=== PATIENT | male | born 1940 | race Caucasian/White ===

== ENCOUNTER 2018-07-30 22:00 | Emergency (ER) | payer MEDICARE, OTHER ==
[~2018-07-30] VITALS: Ht 182.9 cm; Wt 102.5 kg
--- OUTSIDE RECORDS SUMMARY | ~2018-07-30 | XMS | Clinical Summary ---
Demographics + + + | Address | [address] | | | [place] [address] | + + + | Home Phone | | + + + | Preferred Language | Unknown | + + + | Marital Status | | + + + | Rastafarian Affiliation | Unknown | + + + | Race | Unknown | + + + | Ethnic Group | Unknown | + + + Author + + + | Author | [employer] | + + + | Organization | [facility] | + + + | Address | Unknown | + + + | Phone | Unavailable | + + + Support + + + + + | Name | Relationship | Address | Phone | + + + + + | Génesis Meyer | ECON | [address] | | | | | [place] | | | | | [address] | | + + + + + Care Team Providers + +------+ + | Care Furniture Painter Name | Role | Phone | + +------+ + | Renato Macias MD | PP | | + +------+ + Allergies Not on File Current Medications Not on file Active Problems Not on file Social History + +-------+ +--------+------+ | Tobacco Use | Types | Packs/Day | Years | Date | | | | | Used | | + +-------+ +--------+------+ | Never Assessed | | | | | + +-------+ +--------+------+ + + + | Sex Assigned at | Date Recorded | | | | + + + | Not on file | | + + + Last Filed Vital Signs + + + + | Vital Sign | Reading | Time Taken | + + + + | Blood Pressure | 126/71 | 04/29/2015 11:15 AM PST | + + + + | Pulse | 66 | 04/29/2015 11:15 AM PST | + + + + | Temperature | - | - | + + + + | Respiratory Rate | - | - | + + + + | Oxygen Saturation | - | - | + + + + | Inhaled Oxygen | - | - | | Concentration | | | + + + + | Weight | 105.7 kg (233 lb) | 04/29/2015 11:15 AM PST | + + + + | Height | 182.9 cm (6') | 04/29/2015 11:15 AM PST | + + + + | Body Mass Index | 31.6 | 04/29/2015 11:15 AM PST | + + + + Plan of Treatment Not on file Results Not on filefrom Last 3 Months Insurance + +--------+ +------+-------+ + | Payer | Benefi | Subscriber | Type | Phone | Address | | | t Plan | ID | | | | | | / | | | | | | | Group | | | | | + +--------+ +------+-------+ + | MEDICARE | MEDICA | [id number] | | | [address] | | | RE | | | | [place] [id number] | | | IP-OP | | | | | + +--------+ +------+-------+ + + +--------+ +--------+ + + | Guarantor Name | Accoun | Relation to | Date | Phone | Billing Address | | | t Type | Patient | of | | | | | | | | | | + +--------+ +--------+ + + | ANA MEYER | Person | Self [birth year] | Home: | [address] | | | al/Fam | | 1941 | [phone] | [place] [address] | | | heidi | | | [phone] | | + +--------+ +--------+ + +"
--- OUTSIDE RECORDS SUMMARY | ~2018-07-30 | XMS | Clinical Summary ---
Demographics + + + | Address | [address] | | | [place] [address] | + + + | Home Phone | | + + + | Preferred Language | Unknown | + + + | Marital Status | | + + + | Cheondoism Affiliation | Unknown | + + + | Race | Unknown | + + + | Ethnic Group | Unknown | + + + Author + + + | Author | [employer] [employer] | + + + | Organization | [facility] | + + + | Address | Unknown | + + + | Phone | Unavailable | + + + Support + + + + + | Name | Relationship | Address | Phone | + + + + + | Génesis Meyer | ECON | [address] | | | | | [place] | | | | | [address] | | + + + + + Care Team Providers + +------+ + | Care Malt Loader Name | Role | Phone | + [...] +------+-------+ + | MEDICARE | MEDICA | [id number] | | | [address] | | | RE | | | | [place] [id number] | | | IP-OP | | | [...] | 1941 | [phone] | [place] [address] | | | he[place] | | | [phone] | | + +--------+ +--------+ + +"
[~2018-07-30 22:00] MED LIST: ACIPHEX20 MG PO; ALDACTONE25 MG PO; ASA-BUTALB-CAF1 EACH PO; ASPIR-LOW81 MG PO; BISOPROLOL FUMA10 MG PO; BISOPROLOL FUMAR5 MG PO; COUMADIN5 MG PO; DIGOXIN125 MCG PO; FISH OIL CONCE1 EAC1 PO; KEFLEX500 MG PO; LASIX40 MG PO; LIDODERM700 MG TOP; MAG DELAY64 MG PO; NORCO 5-325 TA1 EACH PO; OMEPRAZOLE20 MG PO; PRAVACHOL40 MG PO; PYRIDIUM100 MG PO; SERTRALINE HCL50 MG PO; TAMSULOSIN HCL0.4 MG PO; TYLENOL325 MG PO; VALIUM5 MG PO
[2018-07-30] MEDS ORDERED: GABAPENTIN300 MG PO (22:08)
[2018-07-30] MEDS ORDERED: SPIRONOLACTONE25 MG PO (22:08)
--- NOTE | 2018-07-31 14:24 | EKG ---
[facility] [address] [facility] [place] [address] Signed Atrial fibrillation with rapid ventricular response Left axis deviation Left bundle branch block Abnormal ECG No previous ECGs available Confirmed by JOSEPH RIOS MD ([id number]) on 07/31/2018 2:24:49 PM Electronically Signed By: JOSEPH RIOS MD 07/31/18 1424 PATIENT NAME: ANA GATES Electrocardiogram DATE OF : 36 PHYSICIAN: JOSEPH RIOS MD REPORT #: [id number] REPORT IS CONFIDENTIAL AND NOT TO BE RELEASED WITHOUT AUTHORIZATION
== END 2018-07-31 02:19 | disposition home or self-care (01) ==
LOC: ED 22:00
DX: R07.89 Other chest pain (principal); I10 Essential (primary) hypertension; I25.2 Old myocardial infarction; I48.91 Unspecified atrial fibrillation; Z87.891 Personal history of nicotine dependence; Z95.5 Presence of coronary angioplasty implant and graft; Z79.01 Long term (current) use of anticoagulants; Z79.82 Long term (current) use of aspirin; Z79.899 Other long term (current) drug therapy
CPT/HCPCS: 71045; 80053; 80162; 83735; 84484; 85025; 85610; 93005; 93010; 99285-25

== ENCOUNTER 2019-03-28 22:15 | Emergency (ER) | payer MEDICARE, OTHER ==
[~2019-03-28] VITALS: Ht 182.9 cm; Wt 105.2 kg
[~2019-03-28 22:15] MED LIST changes: +GABAPENTIN300 MG PO; +SPIRONOLACTONE25 MG PO
[2019-03-28] MEDS ORDERED: CLOPIDOGREL75 MG PO (22:27)
[2019-03-28] MEDS ORDERED: WARFARIN SODIUM5 MG PO (22:27)
[2019-03-28] MEDS ORDERED: DIGITEK125 MCG PO (22:28)
[2019-03-28] MEDS ORDERED: FUROSEMIDE40 MG PO (22:28)
[2019-03-28] MEDS ORDERED: PRAVASTATIN SOD40 MG PO (22:28)
[2019-03-28] MEDS ORDERED: LOSARTAN POTASS25 MG PO (22:30)
== END 2019-03-29 00:18 | disposition home or self-care (01) ==
LOC: ED 22:15
DX: R04.0 Epistaxis (principal); R79.1 Abnormal coagulation profile; I10 Essential (primary) hypertension; I25.2 Old myocardial infarction; I48.91 Unspecified atrial fibrillation; Z87.891 Personal history of nicotine dependence; Z79.899 Other long term (current) drug therapy; Z79.01 Long term (current) use of anticoagulants
CPT/HCPCS: 30901; 36415; 80053; 85025; 85610; 85730; 99283-25

== ENCOUNTER 2020-09-30 14:50 | Emergency (ER) | payer MEDICARE, OTHER ==
[~2020-09-30] VITALS: Ht 182.9 cm; Wt 105.7 kg
[~2020-09-30 14:50] MED LIST changes: +CLOPIDOGREL75 MG PO; +DIGITEK125 MCG PO; +FUROSEMIDE40 MG PO; +LOSARTAN POTASS25 MG PO; +PRAVASTATIN SOD40 MG PO; +WARFARIN SODIUM5 MG PO
[2020-09-30] MEDS ORDERED: ACIPHEX20 MG PO (17:03)
[2020-09-30] MEDS ORDERED: LISINOPRIL10 MG PO (17:04)
[2020-09-30] MEDS ORDERED: METOPROLOL SUCC25 MG PO (17:05)
[2020-09-30] MEDS ORDERED: CEPHALEXIN500 M1 PO (18:14)
== END 2020-09-30 19:43 | disposition home or self-care (01) ==
LOC: ED 14:50
DX: L03.115 Cellulitis of right lower limb (principal); I10 Essential (primary) hypertension; I25.2 Old myocardial infarction; I48.91 Unspecified atrial fibrillation; Z87.891 Personal history of nicotine dependence; Z79.899 Other long term (current) drug therapy; Z79.01 Long term (current) use of anticoagulants
CPT/HCPCS: 73560; 80053; 85025; 85610; 96374; 99283-25; J0696

== ENCOUNTER 2021-02-02 16:34 | Emergency (ER) | payer MEDICARE, OTHER ==
[~2021-02-02] VITALS: Ht 182.9 cm; Wt 103.8 kg
[~2021-02-02 16:34] MED LIST changes: +CEPHALEXIN500 M1 PO; +LISINOPRIL10 MG PO; +METOPROLOL SUCC25 MG PO
--- OUTSIDE RECORDS SUMMARY | 2021-02-02 16:36 | XMS ---
PreManage Notification: ANA GATES Security Materials Inspector Events No recent Security Events currently on file CRITERIA MET - [facility] There are no care providers on record at this time. Anna has no Care Guidelines for this patient. Ree VISIT COUNT (12 MO.) 2 LIN Huerta TOTAL 2 NOTE: Visits indicate total known visits. ED/UCC VISIT TRACKING (12 MO.) 02/02/2021 16:35 [facility] [place] TYPE: Emergency COMPLAINT: - LOWER LT LEG PAIN 09/30/2020 14:51 [facility] [place] TYPE: Emergency COMPLAINT: - R FOOT SWOLLEN/PAIN/ NON INJURY DIAGNOSES: - Old myocardial infarction - Cellulitis of right lower limb - Other longterm (current) drug therapy - intermediate (current) use of anticoagulants - Personal history of nicotine dependence - Unspecified atrial fibrillation - Essential (primary) hypertension INPATIENT VISIT TRACKING (12 MO.) 07/09/2020 03:57 [facility] TYPE: Medical Surgical DIAGNOSES: - Sick sinus syndrome - Atrioventricular block, complete [email or web address]
[2021-02-02] MEDS ORDERED: PREDNISONE20 MG PO (18:06)
== END 2021-02-02 18:20 | disposition home or self-care (01) ==
LOC: ED 16:34
DX: M10.9 Gout, unspecified (principal); I10 Essential (primary) hypertension; I25.2 Old myocardial infarction; I48.91 Unspecified atrial fibrillation; Z87.891 Personal history of nicotine dependence; Z79.899 Other long term (current) drug therapy; Z79.01 Long term (current) use of anticoagulants
CPT/HCPCS: 73630; 99283-25; J7512

== ENCOUNTER 2021-06-30 07:05 | Day surgery (SDC) | payer MEDICARE, OTHER ==
[~2021-06-30] VITALS: Ht 182.9 cm; Wt 110.5 kg
[~2021-06-30 07:05] MED LIST changes: +ALLOPURINOL100 MG PO; +OSTERA TABLET1 EACH PO; +PREDNISONE20 MG PO; +PRILOSEC OTC20 MG PO
[2021-06-30] MEDS ORDERED: VITAMIN C100 MG PO (07:28)
--- NOTE | 2021-06-30 09:54 | NUR ---
PT ALERT, ORIENTED AND SUPPORTED BY 2 DAUGHTERS. PT ANXIOUS TO GET SURGERY OVER. PT REQUESTED PRAYER, FAMILY WILL REMAIN DURING SURGERY. ENCOURAGEMENT GIVEN. WILL FOLLOW NEEDED
--- NOTE | 2021-06-30 12:12 | NUR ---
06/30/21 1212 Isamar Faith 1119 PT ARRIVED IN PACU NON RESPONSIVE TO NOXIOUS STIMULI. 1125 PT REACTIVE. 1145 C/O URGE TO VOID. REMINDED PT CATHETER IS IN PLACE. 1155 TAKING SIPS OF WATER. DENTURES RETURNED. 1205 TO DS. REPORT GIVENT TO RN. CALL LIGHT IN PLACE.
--- NOTE | 2021-06-30 12:47 | NUR ---
1205: PT RETURNS TO UNIT VIA STRETCHER FROM PACU. AWAKE AND ALERT ON ARRIVAL. VSS, RESP EVEN AND UNLABORED. DENIES PAIN AND NAUSEA. CBI CONTS TO RUN SLOWLY, DRAINAGE IN GIRALDO CLEAR LIGHT PINK. NO DRAINAGE NOTED AT URETHRA. ICE WATER AND JELLO PROVIDED. DAUGHTER UPDATED. POC DISCUSSED AND PT AGREEABLE AT THIS TIME. NO NEEDS VOICED AT THIS TIME. CALL LIGHT WITHIN REACH
--- NOTE | 2021-06-30 13:10 | NUR ---
1305: PT AWAKE AND ALERT IN STRETCHER WHEN THIS RN ENTERS THE ROOM. VSS, RESP EVEN AND UNLABORED. GEOVANY PO INTAKE WELL. REG LUNCH TRAY ORDERED REQUESTED. OUTPUT REMAINS CLEAR AND PINK. CBI TURNED OFF. WILL CONT TO MONITOR. PT COMFORTABLE WITHOUT NEEDS. CALL LIGHT WITHIN REACH
--- NOTE | 2021-06-30 13:52 | NUR ---
1340: PT COMPLETES REG LUNCH. GEOVANY WELL. GIRALDO CATH CONTS TO DRAIN CLEAR LIGHT PINK URINE WITH CBI TURNED OFF. PT COMFORTABLE WITHOUT NEEDS. CALL LIGHT WITHIN REACH
--- NOTE | 2021-06-30 14:50 | NUR ---
1410: PT WAKES WHEN THIS RN ENTERS THE ROOM. VSS, RESP EVEN AND UNLABORED ON RA. CONTS TO DENY PAIN AND NAUSEA. 350ML PINK TINGED FLUID DRAINED FROM GIRALDO CATH. CBI REMAINS TURNED OFF. LIGHT PINK, CLEAR FLUID FREE OF CLOTS NOTED IN THE TUBING. REG LUNCH TRAY CLEARED. PT COMFORTABLE WITHOUT NEEDS. CALL LIGHT WITHIN REACH 1440: GIRALDO CATH CONTS TO DRAIN LIGHT PINK, CLEAR FLUIT FREE OF CLOTS. NO NEEDS VOICED, CALL LIGHT WITHIN REACH
--- NOTE | 2021-06-30 15:30 | NUR ---
1510: PT CONTS TO BE AWAKE AND ORIENTED IN ROOM. NO CHANGES TO DRAINAGE FROM GIRALDO. DISCUSSED WITH PT. VSS, RESP EVEN AND UNLABORED. IV CONVERTED TO SL. NO NEEDS VOICED, CALL LIGHT WITHIN REACH.
--- NOTE | 2021-06-30 15:54 | NUR ---
1550: TC PLACED TO PT'S DAUGHTER. NOTIFIED PT MEETS CRITERIA FOR DC. TO HEAD TOWARDS HOSPITAL. CBI DISCONNECTED AND LUMEN CAPPED. SL REMOVED WITH CATH TIP INTACT AND PRESSURE APPLIED TO SITE, WNL. DRESSED WITH THIS RN'S ASSISTANCE. REPOSITIONED IN STRETCHER. COMFORTABLE WITHOUT NEEDS, CALL LIGHT WITHIN REACH.
--- NOTE | 2021-06-30 16:23 | NUR ---
1555: DAUGHTER ARRIVES AT THE BEDSIDE. DC INSTRUCTIONS PROVIDED AND DISCUSSED. PT VOICES UNDERSTANDING AND DENIES QUESTIONS AND CONCERNS AT THIS TIME. GIRALDO CARE DISCUSSED AND TEACHBACK PERFORMED 1605: WHEELED OFF OF UNIT IN WC BY THIS RN. TRANSFERS INTO VEHICLE WITH CANE INDEPENDENTLY AND APPROPRIATELY. NO PHYSICAL SIGNS AND SYMPTOMS OF DISTRESS AT THIS TIME
--- NOTE | 2021-07-02 12:24 | OR ---
[facility] [address] [place] [address] Signed DATE OF OPERATION: 06/30/2021 SURGEON: Gladis Geiger MD PREOPERATIVE DIAGNOSES: 1. A 1.5-2 cm papillary bladder mass, located just superior to the left ureteral orifice. 2. Benign prostatic hyperplasia without active obstructive symptoms. 3. Urinary urgency with urge incontinence. POSTOPERATIVE DIAGNOSES: 1. A 1.5-2 cm papillary bladder mass, located just superior to the left ureteral orifice. 2. Benign prostatic hyperplasia without active obstructive symptoms. 3. Urinary urgency with urge incontinence. PROCEDURES: 1. Urethral dilation using Alphonso sounds from 18-Nicaraguan to 28-Nicaraguan. 2. Transurethral resection of bladder tumor - medium. 3. Transurethral resection of the prostate. ANESTHESIA: General. ESTIMATED BLOOD LOSS: 25 mL. COMPLICATIONS: None. SPECIMENS: 1. A 2 cm papillary bladder mass sent to pathology for evaluation. 2. Prostate chips, also sent to pathology for evaluation. DRAINS: A 22-Nicaraguan three-way Chang catheter, connected to moderate flow continuous bladder irrigation. INDICATIONS FOR PROCEDURE: Mr. Meyer is a very pleasant 80-year-old gentleman, who initially presented to me with complaints of urinary urgency and frequency. He was also noted to have microscopic hematuria on his initial workup. At the time of his cystoscopy, he was found to have a Electronically Signed By: GLADIS GEIGER MD 07/02/21 1224 PATIENT NAME: ANA MEYER OPERATIVE REPORT DATE OF : 36 REPORT #: [id number] PHYSICIAN: GLADIS GEIGER MD PCP: JAZZY DUNN MD REPORT IS CONFIDENTIAL AND NOT TO BE RELEASED WITHOUT AUTHORIZATION [facility] [address] [place], [place] [address] Signed 1.5-2 cm papillary bladder mass located just superior to his left ureteral orifice. There were multiple satellite lesions associated with the mass also present. Grade 3-4 bladder wall trabeculation was also noted, which indicated evidence of long-standing bladder outlet obstruction. The patient was not noted to have any significant median lobe; however, he did have an elevated bladder neck. After informing the patient and his family of the presence of a bladder mass as well as evidence of long-standing lateral bladder outlet obstruction, the patient and his family elected to undergo transurethral resection of bladder tumor, medium, along with transurethral resection of the prostate. He presents today to undergo the aforementioned procedures. FINDINGS: 1. Digital rectal examination was performed, which revealed a 45 g prostate is soft, smooth, and symmetric with no focal nodules. 2. Diagnostic cystoscopy again revealed the presence of a 1.5-2 cm papillary bladder mass with associated satellite lesions located just superior to the left ureteral orifice. There were no other obvious lesions present on any other portion of his bladder wall. This lesion was completely resected using a 24-Nicaraguan bipolar loop. The tumor bed was then fully cauterized without incident. The bladder mass was submitted to pathology for evaluation. 3. Ureteroscopy revealed some prominence of the anterior bladder neck and this was resected fully. The patient had also an elevated bladder neck, which was resected and then the lateral lobes of the prostate were very minimal, but these were resected for completeness sake. The entire resection was performed using a 24-Nicaraguan bipolar loop with special attention to the bilateral ureteral orifices, which remained free of any iatrogenic injury at the end of the procedure. The prostatic urethra was then cauterized with the bipolar button to achieve adequate hemostasis. 4. At the end of procedure, a 22-Nicaraguan three-way Chang catheter was inserted into the patient's bladder and connected to moderate flow continuous bladder irrigation. DESCRIPTION OF PROCEDURE: After informed consent was obtained, the patient was taken back to the operating room. He was transferred from the [facility] to the operating room table, where general anesthesia was induced. He was placed in the dorsal lithotomy position and his genitalia were prepped and draped in a standard sterile fashion. His urethral meatus was dilated from 18-Nicaraguan to 28-Nicaraguan using Clyde sounds without difficulty. A digital rectal examination was also performed. Please see above findings. A 26-Nicaraguan sheath was then inserted into the patient's bladder using a visual obturator on a 30-degree lens. Diagnostic cystoscopy was then performed. I then began resection of the obvious papillary mass located just superior to his left ureteral orifice. The tumor was fully resected using a 24-Nicaraguan loop without incident. I then cauterized the tumor bed completely. I chose not to administer intravesical mitomycin today due to the fact that he was also undergoing a concomitant transurethral resection of the prostate for fear of Electronically Signed By: GLADIS GEIGER MD 07/02/21 1224 PATIENT NAME: ANA MEYER OPERATIVE REPORT DATE OF : 36 REPORT #: [id number] PHYSICIAN: GLADIS GEIGER MD PCP: JAZZY DUNN MD REPORT IS CONFIDENTIAL AND NOT TO BE RELEASED WITHOUT AUTHORIZATION [address] [address] Signed mitomycin toxicity. Once I was satisfied that the tumor resection was complete, I irrigated all the tumor fragments from the patient's bladder and placed in a specimen cup to be sent to Pathology. I then switched the settings of the bipolar scope to TURP settings. I resected small protruding lobe coming from the anterior bladder neck and also resected the elevated bladder neck and lateral lobes of the prostate. The resection was performed down to the level of the verumontanum, which was only about half a centimeter from the bladder neck. There was no resection performed proximal to the verumontanum to avoid any damage to the external sphincter. A small amount of tissue was obtained, approximately 10 g at best. I then achieved adequate hemostasis using the bipolar button. The prostate chips were then irrigated from the patient's bladder using a Anjali syringe. Once adequate hemostasis had been fully achieved, I removed the resectoscope and inserted a 0.035 Sensor wire through the sheath and into the patient's bladder. The 26-Nicaraguan sheath was then removed from the urethra, leaving the Sensor wire behind. Over the Sensor wire, I passed a 22-Nicaraguan three-way Chang catheter into the patient's bladder. I manually irrigated the catheter to confirm placement. The catheter balloon was instilled with 30 mL of sterile water. Once the catheter was fully irrigated, I connected to moderate flow continuous bladder irrigation. The procedure was then terminated. The patient tolerated the procedure well without any complication. He will now be transferred to the postanesthesia care unit in stable condition. DISPOSITION: I discussed the details of the procedure with the patient's daughters and answered all of their questions. Since his TURP was not as involved as previous procedures, he will be able to go home later today once he is weaned off continuous bladder irrigation. He will need to keep his Chang catheter indwelling for two days and will return to clinic this , July 03 to undergo a voiding trial. He was sent home today on Ultram 100 mg p.o. q.6 hours p.r.n. pain along with Levaquin 250 mg p.o. daily x7 days. I told his family that I will contact him with the results of his tumor removal in about 5-7 business days. This will dictate how we manage his tumor in the future and this was explained to his daughters today. MD JANINA Gonzalez/CARENL /[id number] Electronically Signed By: GLADIS GEIGER MD 07/02/21 1224 PATIENT NAME: ANA MEYER OPERATIVE REPORT DATE OF : 36 REPORT #: [id number] PHYSICIAN: GLADIS GEIGER MD PCP: JAZZY DUNN MD REPORT IS CONFIDENTIAL AND NOT TO BE RELEASED WITHOUT AUTHORIZATION [facility] [address] [place] [id number] Signed Copies: ~ Electronically Signed By: GLADIS GEIGER MD 07/02/21 1224 PATIENT NAME: ANA MEYER OPERATIVE REPORT DATE OF : 36 REPORT #: [id number] PHYSICIAN: GLADIS GEIGER MD PCP: JAZZY DUNN MD REPORT IS CONFIDENTIAL AND NOT TO BE RELEASED WITHOUT AUTHORIZATION
--- NOTE | 2021-07-02 16:04 | PATH ---
[facility] [address] [place], [place] [address] Signed SPECIMEN(S): A BLADDER MASS SPECIMEN(S): B PROSTATE CHIPS SPECIMEN SOURCE: A. BLADDER MASS B. PROSTATE CHIPS CLINICAL HISTORY: Preoperative/Postoperative Diagnosis: Bladder mass, urge incontinence, BPH with LUTS. TURP and TURBT. FINAL PATHOLOGIC DIAGNOSIS: A. Bladder mass, transurethral resection: - Noninvasive low-grade papillary urothelial carcinoma: - Muscularis propria (detrusor muscle): Present and not involved by the carcinoma. - Lymphovascular invasion: Not identified. - Background eosinophilic cystitis and chronic cystitis. B. Prostate chips, transurethral resection: - Benign prostatic hyperplasia. COMMENT: As part of [employer] Quality Improvement Program, this case was reviewed by another member of our pathology staff (LESLYE). A diagnostic alert was initiated by Dr. Oro on 07/02/21. NAL: LESLYE:cml:C1NR MICROSCOPIC EXAMINATION: Histologic sections of all submitted blocks are examined by light microscopy. These findings, together with the gross examination, support the pathologic diagnosis. GROSS DESCRIPTION: Two specimens are received in two containers, labeled "DH." A. The specimen, labeled "DH, A," and designated on the requisition "bladder mass," is received in formalin and consists of four fragments of pink-serrano, soft and flocculent tissue (2.4 x 2.1 x 0.5 cm in aggregate). The specimen is submitted entirely in cassette (A1). B. The specimen, labeled "DH, B," and designated on the requisition "prostate chips," is received in formalin and consists of a portion of pink-serrano, soft and rubbery tissue (3 gram, 4.5 x 2.2 x 1.2 PATIENT NAME: ANA GATES PATHOLOGY DATE OF : 36 REPORT #: [id number] PHYSICIAN: KRISTEL PATHOLOGY PCP: JAZZY DUNN MD REPORT IS CONFIDENTIAL AND NOT TO BE RELEASED WITHOUT AUTHORIZATION [facility] [address] [place], [place] [address] Signed cm in aggregate). The specimen is submitted entirely in cassettes (B1-B3). AC (under the direct supervision of a pathologist) The Gross Description was prepared using a voice recognition system. The report was reviewed for accuracy; however, sound-alike word errors, addition and/or deletions may occur. If there is any question about this report, please contact Client Services. PERFORMING LABORATORY: The technical component was performed by [employer], [address] [place] [id number] (CLIA# [id number]). [facility], [address] [address] (CLIA# [id number]). Diagnostician: Chandrika Oro MD Pathologist Electronically Signed 07/02/2021 Copies: ~ PATIENT NAME: ANA GATES PATHOLOGY DATE OF : 36 REPORT #: [id number] PHYSICIAN: KRISTEL CARLSON PCP: JAZZY DUNN MD REPORT IS CONFIDENTIAL AND NOT TO BE RELEASED WITHOUT AUTHORIZATION
== END 2021-06-30 16:05 | disposition home or self-care (01) ==
LOC: DS 07:05
PROVIDERS: ATTEND Urology
PROC: 0T7D8ZZ Dilation of Urethra, Via Natural or Artificial Opening Endoscopic (ICD-10-PCS; 2021-06-30)
PROC: 0VT08ZZ Resection of Prostate, Via Natural or Artificial Opening Endoscopic (ICD-10-PCS; principal; 2021-06-30 09:15)
PROC: 0TBB8ZX Excision of Bladder, Via Natural or Artificial Opening Endoscopic, Diagnostic (ICD-10-PCS; 2021-06-30 09:15)
DX: C67.6 Malignant neoplasm of ureteric orifice (principal); N40.1 Benign prostatic hyperplasia with lower urinary tract symptoms; N39.41 Urge incontinence; I25.119 Atherosclerotic heart disease of native coronary artery with unspecified angina pectoris; I48.21 Permanent atrial fibrillation; I11.0 Hypertensive heart disease with heart failure; I50.32 Chronic diastolic (congestive) heart failure; E78.5 Hyperlipidemia, unspecified; M10.9 Gout, unspecified; M19.90 Unspecified osteoarthritis, unspecified site; Z95.0 Presence of cardiac pacemaker; Z87.891 Personal history of nicotine dependence; Z95.5 Presence of coronary angioplasty implant and graft; Z79.01 Long term (current) use of anticoagulants; Z20.822 Contact with and (suspected) exposure to COVID-19
CPT/HCPCS: 87502; C1769; J0690; J1100; J1885; J2405; J2704; J2765; J3010; J7121; U0003

== ENCOUNTER 2021-08-01 17:09 | Emergency (ER) | payer MEDICARE ==
[~2021-08-01] VITALS: Ht 182.9 cm; Wt 110.6 kg
[~2021-08-01 17:09] MED LIST changes: +VITAMIN C100 MG PO
--- OUTSIDE RECORDS SUMMARY | 2021-08-01 17:12 | XMS ---
PreManage Notification: ANA GATES Security Talent Management Specialist Events No recent Security Events currently on file CRITERIA MET - [facility] CARE PROVIDERS JAZZY DUNN [facility] 02/03/2021-Current PHONE: [phone] Anna has no Care Guidelines for this patient. ERosangela VISIT COUNT (12 MO.) 4 LIN Huerta TOTAL 4 NOTE: Visits indicate total known visits. ED/UCC VISIT TRACKING (12 MO.) 08/01/2021 17:10 [facility] [place] TYPE: Emergency COMPLAINT: - URINATING BLOOD, NOW UNABLE TO URINATE 03/18/2021 13:36 [facility] [place] TYPE: Emergency COMPLAINT: - WEAKNESS 02/02/2021 16:35 [facility] [place] TYPE: Emergency COMPLAINT: - LOWER LT LEG PAIN DIAGNOSES: - Gout, unspecified - Essential (primary) hypertension - Unspecified atrial fibrillation - shelter (current) use of anticoagulants - Old myocardial infarction - Pain in left foot - Other custodial (current) drug therapy - Personal history of nicotine dependence 09/30/2020 14:51 LIN [facility] [place] TYPE: Emergency COMPLAINT: - R FOOT SWOLLEN/PAIN/ NON INJURY DIAGNOSES: - Old myocardial infarction - Cellulitis of right lower limb - Other custodial (current) drug therapy - ad terminal makeup operator (current) use of anticoagulants - Personal history of nicotine dependence - Unspecified atrial fibrillation - Essential (primary) hypertension INPATIENT VISIT TRACKING (12 MO.) 03/18/2021 13:37 LIN [facility] [place] TYPE: Observation COMPLAINT: - COVID, WEAKNESS, CHOKING EPISODE DIAGNOSES: - Weakness - Essential (primary) hypertension - Unspecified atrial fibrillation - Old myocardial infarction - COVID-19 - Atherosclerotic heart disease of [place] coronary artery without angina pectoris - Presence of coronary angioplasty implant and graft - Personal history of nicotine dependence - Gastro-esophageal reflux disease without esophagitis - Acute kidney failure, unspecified - Presence of cardiac pacemaker [email or web address]
[2021-08-02] MEDS ORDERED: CEPHALEXIN500 M1 PO (06:21)
== END 2021-08-01 19:07 | disposition home or self-care (01) ==
LOC: ED 17:09
DX: R31.9 Hematuria, unspecified (principal); I10 Essential (primary) hypertension; I25.2 Old myocardial infarction; I48.91 Unspecified atrial fibrillation; Z87.891 Personal history of nicotine dependence; Z79.899 Other long term (current) drug therapy; Z79.01 Long term (current) use of anticoagulants
CPT/HCPCS: 51798; 99283-25

== ENCOUNTER 2021-08-02 04:45 | Emergency (ER) | payer MEDICARE, OTHER ==
[~2021-08-02] VITALS: Ht 182.9 cm; Wt 110.6 kg
--- OUTSIDE RECORDS SUMMARY | 2021-08-02 04:48 | XMS ---
PreManage Notification: ANA GATES Security Counter Person Events No recent Security Events currently on file CRITERIA MET - [facility] JAZZ[facility]UN[facility] 02/03/2021-Current PHONE: [phone] Anna has no Care Guidelines for this patient. Ree VISIT COUNT (12 MO.) 5 [facility] TOTAL 5 NOTE: Visits indicate total known visits. ED/UCC VISIT TRACKING (12 MO.) 08/02/2021 04:46 LIN [facility] [place] TYPE: Emergency COMPLAINT: - BLOOD IN URINE 08/01/2021 17:10 LIN [facility] [place] TYPE: Emergency COMPLAINT: - URINATING BLOOD, NOW UNABLE TO URINATE 03/18/2021 13:36 LIN [facility] [place] TYPE: Emergency COMPLAINT: - WEAKNESS 02/02/2021 16:35 [facility] [place] TYPE: Emergency COMPLAINT: - LOWER LT LEG PAIN DIAGNOSES: - Gout, unspecified - Essential (primary) hypertension - Unspecified atrial fibrillation - senior care (current) use of anticoagulants - Old myocardial infarction - Pain in left foot - Other snf (current) drug therapy - Personal history of nicotine dependence 09/30/2020 14:51 LIN [facility] [place] TYPE: Emergency COMPLAINT: - R FOOT SWOLLEN/PAIN/ NON INJURY DIAGNOSES: - Old myocardial infarction - Cellulitis of right lower limb - Other local company intermodal truck driver (current) drug therapy - senior care (current) use of anticoagulants - Personal history of nicotine dependence - Unspecified atrial fibrillation - Essential (primary) hypertension INPATIENT VISIT TRACKING (12 MO.) 03/18/2021 13:37 LIN Martin [place] TYPE: Observation COMPLAINT: - COVID, WEAKNESS, CHOKING EPISODE DIAGNOSES: - Weakness - Essential (primary) hypertension - Unspecified atrial fibrillation - Old myocardial infarction - COVID-19 - Atherosclerotic heart disease of [place] coronary artery without angina pectoris - Presence of coronary angioplasty implant and graft - Personal history of nicotine dependence - Gastro-esophageal reflux disease without esophagitis - Acute kidney failure, unspecified - Presence of cardiac pacemaker [email or web address]
[2021-08-02] MEDS ORDERED: CEPHALEXIN500 M1 PO (06:21)
== END 2021-08-02 09:07 | disposition home or self-care (01) ==
LOC: ED 04:45
DX: N39.0 Urinary tract infection, site not specified (principal); I10 Essential (primary) hypertension; I25.2 Old myocardial infarction; I48.91 Unspecified atrial fibrillation; Z87.891 Personal history of nicotine dependence; Z79.899 Other long term (current) drug therapy; Z79.01 Long term (current) use of anticoagulants
CPT/HCPCS: 36415; 51702; 80053; 81001; 85025; 85610; 99283-25; J0696

== ENCOUNTER 2022-07-21 20:02 | Emergency (ER) | payer MEDICARE, OTHER ==
[~2022-07-21] VITALS: Ht 182.9 cm; Wt 110.0 kg
[2022-07-21] MEDS ORDERED: AMLODIPINE BESYL5 MG PO (20:13)
[2022-07-21 21:52] VITALS: BP 160/71
== END 2022-07-21 21:52 | disposition home or self-care (01) ==
LOC: ED 20:02
DX: T18.128A Food in esophagus causing other injury, initial encounter (principal); I10 Essential (primary) hypertension; I25.2 Old myocardial infarction; X58.XXXA Exposure to other specified factors, initial encounter; Z87.891 Personal history of nicotine dependence; Z79.899 Other long term (current) drug therapy; Z95.5 Presence of coronary angioplasty implant and graft; Z95.0 Presence of cardiac pacemaker
CPT/HCPCS: 36415; 71045; 80053; 83735; 85025

== ENCOUNTER 2022-08-28 10:22 | Emergency (ER) | payer MEDICARE, OTHER ==
[~2022-08-28] VITALS: Ht 182.9 cm; Wt 105.2 kg
--- OUTSIDE RECORDS SUMMARY | ~2022-08-28 | XMS | Continuity of Care Document ---
Demographics + + + | Address | [address] | | | [place] [address] | + + + | Preferred Language | Unknown | + + + | Marital Status | | + + + | Islam Affiliation | Unknown | + + + | Race | White | + + + | Ethnic Group | Not or | + + + Author + + + | Author | [facility] | + + + | Organization | [facility] | + + + | Address | [address] | | | [place] [address] | + + + | Phone | | + + + Care Team Providers + + + + | Care Winch Derrick Operator Name | Role | Phone | + + + + Unavailable | Unavailable | + + + + Unavailable | Unavailable | + + + + Allergies No information. Encounters No information. Functional Status No information. Immunizations No information. Medications + + + + | date | description | facility | + + + + | 2015-04-17 00:00 | LIDOCAINE | [facility] | + + + + | 2014-08-22 00:00 | DIAZEPAM | [facility] | + + + + | 2013-08-19 00:00 | PHENAZOPYRIDINE HCL | [facility] | + + + + | 2022-06-22 00:00 | ALLOPURINOL | [facility] | + + + + | 2022-07-21 00:00 | ALLOPURINOL | [facility] | + + + + | 2022-07-21 00:00 | AMLODIPINE BESYLATE | [facility] | + + + + | 2020-09-30 00:00 | CEPHALEXIN | [facility] | + + + + | 2022-06-22 00:00 | DIGOXIN | [facility] | + + + + | 2022-07-21 00:00 | DIGOXIN | [facility] | + + + + | 2022-06-22 00:00 | OMEPRAZOLE | [facility] | + + + + | 2022-07-21 00:00 | OMEPRAZOLE | [facility] | + + + + | 2022-06-22 00:00 | ASCORBIC ACID | [facility] | + + + + | 2022-06-22 00:00 | FUROSEMIDE | [facility] | + + + + | 2022-07-21 00:00 | FUROSEMIDE | [facility] | + + + + | 2022-06-22 00:00 | SPIRONOLACTONE | [facility] | + + + + | 2022-07-21 00:00 | SPIRONOLACTONE | [facility] | + + + + | 2013-08-19 00:00 | CEPHALEXIN | [facility] | + + + + | 2022-06-22 00:00 | DIGOXIN | [facility] | + + + + | 2022-07-21 00:00 | DIGOXIN | [facility] | + + + + | 2022-06-22 00:00 | CLOPIDOGREL BISULFATE | [facility] | + + + + | 2022-07-21 00:00 | CLOPIDOGREL BISULFATE | [facility] | + + + + | 2022-06-22 00:00 | GABAPENTIN | [facility] | + + + + | 2022-07-21 00:00 | GABAPENTIN | [facility] | + + + + | 2022-06-22 00:00 | SERTRALINE HCL | [facility] | + + + + | 2022-07-21 00:00 | SERTRALINE HCL | [facility] | + + + + | 2022-06-22 00:00 | SPIRONOLACTONE | [facility] | + + + + | 2022-07-21 00:00 | SPIRONOLACTONE | [facility] | + + + + | 2022-06-22 00:00 | ACETAMINOPHEN | [facility] | + + + + | 2022-07-21 00:00 | ACETAMINOPHEN | [facility] | + + + + | 2022-06-22 00:00 | LISINOPRIL | [facility] | + + + + | 2022-07-21 00:00 | LISINOPRIL | [facility] | + + + + 2022-06-22 00:00 | OMEPRAZOLE MAGNESIUM | [facility] | + + + + | 2022-07-21 00:00 | OMEPRAZOLE MAGNESIUM | [facility] | + + + + | 2022-06-22 00:00 | VIT D3 & K/BERBERINE | [facility] | | | HCL/HOPS | | + + + + | 2022-06-22 00:00 | RABEPRAZOLE SODIUM | [facility] | + + + + | 2022-07-21 00:00 | RABEPRAZOLE SODIUM | [facility] | + + + + | 2022-06-22 00:00 | BISOPROLOL FUMARATE | [facility] | + + + + | 2022-07-21 00:00 | BISOPROLOL FUMARATE | [facility] | + + + + | 2022-06-22 00:00 | BISOPROLOL FUMARATE | [facility] | + + + + | 2022-07-21 00:00 | BISOPROLOL FUMARATE | [facility] | + + + + | 2022-06-22 00:00 | WARFARIN SODIUM | [facility] | + + + + | 2022-06-22 00:00 | WARFARIN SODIUM | [facility] | + + + + | 2022-07-21 00:00 | WARFARIN SODIUM | [facility] | + + + + | 2022-06-22 00:00 | HYDROCODONE | [facility] | | | BIT/ACETAMINOPHEN | | + + + + | 2022-07-21 00:00 | HYDROCODONE | [facility] | | | BIT/ACETAMINOPHEN | | + + + + | 2022-06-22 00:00 | TAMSULOSIN HCL | [facility] | + + + + | 2022-07-21 00:00 | TAMSULOSIN HCL | [facility] | + + + + | 2022-06-22 00:00 | METOPROLOL SUCCINATE | [facility] | + + + + | 2022-07-21 00:00 | METOPROLOL SUCCINATE | [facility] | + + + + | 2022-06-22 00:00 | PRAVASTATIN SODIUM | [facility] | + + + + | 2022-07-21 00:00 | PRAVASTATIN SODIUM | [facility] | + + + + | 2022-06-22 00:00 | LOSARTAN POTASSIUM | [facility] | + + + + | 2022-07-21 00:00 | LOSARTAN POTASSIUM | [facility] | + + + + | 2022-06-22 00:00 | | [facility] | | | CODEINE/BUTALBITAL/ASA/CAFF | | | | EIN | | + + + + | 2022-07-21 00:00 | | [facility] | | | CODEINE/BUTALBITAL/ASA/CAFF | | | | EIN | | + + + + Problems + + + + | date | description | facility | + + + + | 2014-08-22 00:00 | Low back pain | [facility] | + + + + | 2015-04-17 00:00 | Back pain | [facility] | + + + + | 2015-05-11 00:00 | Hematuria | [facility] | + + + + | 2018-07-31 00:00 | Chest pain | 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 | | | extremity | | + + + + | 2021-02-02 00:00 | Gout of left foot | [facility] | + + + + | 2021-08-02 00:00 | Urinary tract infection | [facility] | + + + + | 2021-08-02 04:46 | Essential (primary) | [facility] | | | hypertension | [facility] | + + + + | 2021-08-02 04:46 | Old myocardial infarction | [facility] | | | | [facility] | + + + + | 2021-08-02 04:46 | Unspecified atrial | [facility] | | | fibrillation | [facility] | + + + + | 2021-08-02 04:46 | Urinary tract infection, | [facility] | | | site not specified | [facility] | + + + + | 2021-08-02 04:46 | Hematuria, unspecified | [facility] | | | | [facility] | + + + + | 2021-08-02 04:46 | residential (current) use of | [facility] | | | anticoagulants | [facility] | + + + + | 2021-08-02 04:46 | Other skilled nursing (current) | [facility] | | | drug therapy | [facility] | + + + + | 2021-08-02 04:46 | Personal history of | [facility] | | | nicotine dependence | [facility] | + + + + | 2022-07-21 00:00 | Food impaction of | [facility] | | | esophagus | | + + + + | 2022-07-21 20:02 | Essential (primary) | [facility] | | | hypertension | | + + + + | 2022-07-21 20:02 | OLD MYOCARDIAL INFARCTION | [facility] | + + + + | 2022-07-21 20:02 | NAUSEA | [facility] | + + + + | 2022-07-21 20:02 | FOOD IN ESOPHAGUS CAUSING | [facility] | | | OTHER INJURY, INITIAL EN | | + + + + | 2022-07-21 20:02 | EXPOSURE TO OTHER | [facility] | | | SPECIFIED FACTORS, INITIAL | | | | ENCOU | | + + + + | 2022-07-21 20:02 | OTHER NURSING HOME (CURRENT) | [facility] | | | DRUG THERAPY | | + + + + | 2022-07-21 20:02 | PERSONAL HISTORY OF | [facility] | | | NICOTINE DEPENDENCE | | + + + + | 2022-07-21 20:02 | PRESENCE OF CARDIAC | [facility] | | | PACEMAKER | | + + + + | 2022-07-21 20:02 | 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 Results/Labs +--------+--------+ + +---------+--------+ + | test | date | author | facility | value | unit | | | | | | | | | interpreta | | | | | | | | tion | +--------+--------+ + +---------+--------+ + + + | Result panel 1 | + + + + + + +---------+ + + | (unknown) | (no date) | (unknown) | [facility] | (no | (units | (unknown) | | | | | [facility] | value) | unknown) | | | | | | Hospital | | | | + + + + +---------+ + + + + | Result panel 2 | + + + + + + +---------+ + + | (unknown) | (no date) | (unknown) | [facility] | (no | (units | (unknown) | | | | | [facility]j | value) | unknown) | | | | | | Hospital | | | | + + + + +---------+ + + + + | Result panel 3 | + + + + + + +---------+ + + | (unknown) | (no date) | (unknown) | [facility] | (no | (units | (unknown) | | | | | [facility]j | value) | unknown) | | | | | | Hospital | | | | + + + + +---------+ + + + + | Result panel 4 | + + + + + + +---------+ + + | (unknown) | (no date) | (unknown) | [facility] | (no | (units | (unknown) | | | | | [facility]j | value) | unknown) | | | | | | Hospital | | | | + + + + +---------+ + + + + | Result panel 5 | + + + + + + +---------+ + + | (unknown) | (no date) | (unknown) | [facility] | (no | (units | (unknown) | | | | | [facility]j | value) | unknown) | | | | | | Hospital | | | | + + + + +---------+ + + + + | Result panel 6 | + + + + + + +---------+ + + | (unknown) | (no date) | (unknown) | [facility] | (no | (units | (unknown) | | | | | [facility]j | value) | unknown) | | | | | | Hospital | | | | + + + + +---------+ + + + + | Result panel 7 | + + + + + + +---------+ + + | (unknown) | (no date) | (unknown) | [facility] | (no | (units | (unknown) | | | | | [facility]j | value) | unknown) | | | | | | Hospital | | | | + + + + +---------+ + + + + | Result panel 8 | + + + + + + +---------+ + + | (unknown) | (no date) | (unknown) | [facility] | (no | (units | (unknown) | | | | | Rj | value) | unknown) | | | | | | Hospital | | | | + + + + +---------+ + + + + | Result panel 9 | + + + + + + +---------+ + + | (unknown) | (no date) | (unknown) | [facility] | (no | (units | (unknown) | | | | | Rj | value) | unknown) | | | | | | Hospital | | | | + + + + +---------+ + + + + | Result panel 10 | + + + + + + +---------+ + + | (unknown) | (no date) | (unknown) | [facility] | (no | (units | (unknown) | | | | | Rj | value) | unknown) | | | | | | Hospital | | | | + + + + +---------+ + + + + | Result panel 11 | + + + + + + +---------+ + + | (unknown) | (no date) | (unknown) | [facility] | (no | (units | (unknown) | | | | | Rj | value) | unknown) | | | | | | Hospital | | | | + + + + +---------+ + + + + | Result panel 12 | + + + + + + +---------+ + + | (unknown) | (no date) | (unknown) | [facility] | (no | (units | (unknown) | | | | | Rj | value) | unknown) | | | | | | Hospital | | | | + + + + +---------+ + + + + | Result panel 13 | + + + + + + +---------+ + + | (unknown) | (no date) | (unknown) | [facility] | (no | (units | (unknown) | | | | | Rj | value) | unknown) | | | | | | Hospital | | | | + + + + +---------+ + + + + | Result panel 14 | + + + + + + +---------+ + + | (unknown) | (no date) | (unknown) | [facility] | (no | (units | (unknown) | | | | | Rj | value) | unknown) | | | | | | Hospital | | | | + + + + +---------+ + + + + | Result panel 15 | + + + + + + +---------+ + + | (unknown) | (no date) | (unknown) | [facility] | (no | (units | (unknown) | | | | | Rj | value) | unknown) | | | | | | Hospital | | | | + + + + +---------+ + + + + | Result panel 16 | + + + + + + +---------+ + + | (unknown) | (no date) | (unknown) | [facility] | (no | (units | (unknown) | | | | | Rj | value) | unknown) | | | | | | Hospital | | | | + + + + +---------+ + + + + | Result panel 17 | + + + + + + +---------+ + + | (unknown) | (no date) | (unknown) | [facility] | (no | (units | (unknown) | | | | | Rj | value) | unknown) | | | | | | Hospital | | | | + + + + +---------+ + + + + | Result panel 18 | + + + + + + +---------+ + + | (unknown) | (no date) | (unknown) | [facility] | (no | (units | (unknown) | | | | | Rj | value) | unknown) | | | | | | Hospital | | | | + + + + +---------+ + + + + | Result panel 19 | + + + + + + +---------+ + + | (unknown) | (no date) | (unknown) | [facility] | (no | (units | (unknown) | | | | | Rj | value) | unknown) | | | | | | Hospital | | | | + + + + +---------+ + + + + | Result panel 20 | + + + + + + +---------+ + + | (unknown) | (no date) | (unknown) | [facility] | (no | (units | (unknown) | | | | | Rj | value) | unknown) | | | | | | Hospital | | | | + + + + +---------+ + + + + | Result panel 21 | + + + + + + +---------+ + + | (unknown) | (no date) | (unknown) | [facility] | (no | (units | (unknown) | | | | | Rj | value) | unknown) | | | | | | Hospital | | | | + + + + +---------+ + + + + | Result panel 22 | + + + + + + +---------+ + + | (unknown) | (no date) | (unknown) | [facility] | (no | (units | (unknown) | | | | | Rj | value) | unknown) | | | | | | Hospital | | | | + + + + +---------+ + + + + | Result panel 23 | + + + + + + +---------+ + + | (unknown) | (no date) | (unknown) | [facility] | (no | (units | (unknown) | | | | | Jr | value) | unknown) | | | | | | Hospital | | | | + + + + +---------+ + + + + | Result panel 24 | + + + + + + +---------+ + + | (unknown) | (no date) | (unknown) | [facility] | (no | (units | (unknown) | | | | | Rj | value) | unknown) | | | | | | Hospital | | | | + + + + +---------+ + + + + | Result panel 25 | + + + + + + +---------+ + + | (unknown) | (no date) | (unknown) | [facility] | (no | (units | (unknown) | | | | | Rj | value) | unknown) | | | | | | Hospital | | | | + + + + +---------+ + + + + | Result panel 26 | + + + + + + +---------+ + + | (unknown) | (no date) | (unknown) | [facility] | (no | (units | (unknown) | | | | | Rj | value) | unknown) | | | | | | Hospital | | | | + + + + +---------+ + + + + | Result panel 27 | + + + + + + +---------+ + + | (unknown) | (no date) | (unknown) | [facility] | (no | (units | (unknown) | | | | | Rj | value) | unknown) | | | | | | Hospital | | | | + + + + +---------+ + + + + | Result panel 28 | + + + + + + +---------+ + + | (unknown) | (no date) | (unknown) | [facility] | (no | (units | (unknown) | | | | | Rj | value) | unknown) | | | | | | Hospital | | | | + + + + +---------+ + + + + | Result panel 29 | + + + + + + +---------+ + + | (unknown) | (no date) | (unknown) | [facility] | (no | (units | (unknown) | | | | | [facility]j | value) | unknown) | | | | | | Hospital | | | | + + + + +---------+ + + + + | Result panel 30 | + + + + + + +---------+ + + | (unknown) | (no date) | (unknown) | [facility] | (no | (units | (unknown) | | | | | [facility]j | value) | unknown) | | | | | | Hospital | | | | + + + + +---------+ + + + + | Result panel 31 | + + + + + + +---------+ + + | (unknown) | (no date) | (unknown) | [facility] | (no | (units | (unknown) | | | | | [facility]j | value) | unknown) | | | | | | Hospital | | | | + + + + +---------+ + + + + | Result panel 32 | + + + + + + +---------+ + + | (unknown) | (no date) | (unknown) | [facility] | (no | (units | (unknown) | | | | | [facility]j | value) | unknown) | | | | | | Hospital | | | | + + + + +---------+ + + + + | Result panel 33 | + + + + + + +---------+ + + | (unknown) | (no date) | (unknown) | [facility] | (no | (units | (unknown) | | | | | [facility]j | value) | unknown) | | | | | | Hospital | | | | + + + + +---------+ + + + + | Result panel 34 | + + + + + + +---------+ + + | (unknown) | (no date) | (unknown) | [facility] | (no | (units | (unknown) | | | | | [facility]j | value) | unknown) | | | | | | Hospital | | | | + + + + +---------+ + + Social History No information. Vital Signs + + + +---------+ | date | measurement | value | units | + + + +---------+ | 2022-07-21 00:00 | BMI | 32.9 | kg/m2 | + + + +---------+ | 2022-07-21 00:00 | BP_diastolic | 71 | mmHg | + + + +---------+ | 2022-07-21 00:00 | BP_systolic | 160 | mmHg | + + + +---------+ | 2022-07-21 00:00 | heart_rate | 59 | /min | + + + +---------+ | 2022-07-21 00:00 | height_metric | 182.88 | cm | + + + +---------+ | 2022-07-21 00:00 | height_standard | 72 | in | + + + +---------+ | 2022-07-21 00:00 | o2_saturation | 95 | % | + + + +---------+ | 2022-07-21 00:00 | respiration_rate | 16 | /min | + + + +---------+ | 2022-07-21 00:00 | temperature_metric | 36.39 | C | | | | | | + + + +---------+ | 2022-07-21 00:00 | | 97.5 | F | | | temperature_standar | | | | | d | | | + + + +---------+ | 2022-07-21 00:00 | weight_metric | 110 | kg | + + + +---------+ | 2022-07-21 00:00 | weight_standard | 242.51 | lb | + + + +---------+"
--- OUTSIDE RECORDS SUMMARY | ~2022-08-28 | XMS | Continuity of Care Document ---
Demographics + + + | Address | [address] | | | [place] [address] | + + + | Preferred Language | Unknown | + + + | Marital Status | | + + + | Cheondoism Affiliation | Unknown | + + + | Race | White | + + + | Ethnic Group | Not or | + + + Author + + + | Author | [facility] | + + + | Organization | [facility] | + + + | Address | [address] | | | [place] [address] | + + + | Phone | | + + + Care Team Providers + + + + | Care [employer] Manager Name | Role | Phone | + + + + Unavailable | Unavailable | + + + + Unavailable | Unavailable | + + + + Allergies No information. Encounters No information. Functional Status No information. Immunizations No information. Medications + + + + | date | description | facility | + + + + | 2015-04-17 00:00 | LIDOCAINE | [facility] | + + + + | 2014-08-22 00:00 | DIAZEPAM | [facility] | + + + + | 2013-08-19 00:00 | PHENAZOPYRIDINE HCL | [facility] | + + + + | 2022-06-22 00:00 | ALLOPURINOL | [facility] | + + + + | 2022-07-21 00:00 | ALLOPURINOL | [facility] | + + + + | 2022-07-21 00:00 | AMLODIPINE BESYLATE | [facility] | + + + + | 2020-09-30 00:00 | CEPHALEXIN | [facility] | + + + + | 2022-06-22 00:00 | DIGOXIN | [facility] | + + + + | 2022-07-21 00:00 | DIGOXIN | [facility] | + + + + | 2022-06-22 00:00 | OMEPRAZOLE | [facility] | + + + + | 2022-07-21 00:00 | OMEPRAZOLE | [facility] | + + + + | 2022-06-22 00:00 | ASCORBIC ACID | [facility] | + + + + | 2022-06-22 00:00 | FUROSEMIDE | [facility] | + + + + | 2022-07-21 00:00 | FUROSEMIDE | [facility] | + + + + | 2022-06-22 00:00 | SPIRONOLACTONE | [facility] | + + + + | 2022-07-21 00:00 | SPIRONOLACTONE | [facility] | + + + + | 2013-08-19 00:00 | CEPHALEXIN | [facility] | + + + + | 2022-06-22 00:00 | DIGOXIN | [facility] | + + + + | 2022-07-21 00:00 | DIGOXIN | [facility] | + + + + | 2022-06-22 00:00 | CLOPIDOGREL BISULFATE | [facility] | + + + + | 2022-07-21 00:00 | CLOPIDOGREL BISULFATE | [facility] | + + + + | 2022-06-22 00:00 | GABAPENTIN | [facility] | + + + + | 2022-07-21 00:00 | GABAPENTIN | [facility] | + + + + | 2022-06-22 00:00 | SERTRALINE HCL | [facility] | + + + + | 2022-07-21 00:00 | SERTRALINE HCL | [facility] | + + + + | 2022-06-22 00:00 | SPIRONOLACTONE | [facility] | + + + + | 2022-07-21 00:00 | SPIRONOLACTONE | [facility] | + + + + | 2022-06-22 00:00 | ACETAMINOPHEN | [facility] | + + + + | 2022-07-21 00:00 | ACETAMINOPHEN | [facility] | + + + + | 2022-06-22 00:00 | LISINOPRIL | [facility] | + + + + | 2022-07-21 00:00 | LISINOPRIL | [facility] | + + + + 2022-06-22 00:00 | OMEPRAZOLE MAGNESIUM | [facility] | + + + + | 2022-07-21 00:00 | OMEPRAZOLE MAGNESIUM | [facility] | + + + + | 2022-06-22 00:00 | VIT D3 & K/BERBERINE | [facility] | | | HCL/HOPS | | + + + + | 2022-06-22 00:00 | RABEPRAZOLE SODIUM | [facility] | + + + + | 2022-07-21 00:00 | RABEPRAZOLE SODIUM | [facility] | + + + + | 2022-06-22 00:00 | BISOPROLOL FUMARATE | [facility] | + + + + | 2022-07-21 00:00 | BISOPROLOL FUMARATE | [facility] | + + + + | 2022-06-22 00:00 | BISOPROLOL FUMARATE | [facility] | + + + + | 2022-07-21 00:00 | BISOPROLOL FUMARATE | [facility] | + + + + | 2022-06-22 00:00 | WARFARIN SODIUM | [facility] | + + + + | 2022-06-22 00:00 | WARFARIN SODIUM | [facility] | + + + + | 2022-07-21 00:00 | WARFARIN SODIUM | [facility] | + + + + | 2022-06-22 00:00 | HYDROCODONE | [facility] | | | BIT/ACETAMINOPHEN | | + + + + | 2022-07-21 00:00 | HYDROCODONE | [facility] | | | BIT/ACETAMINOPHEN | | + + + + | 2022-06-22 00:00 | TAMSULOSIN HCL | [facility] | + + + + | 2022-07-21 00:00 | TAMSULOSIN HCL | [facility] | + + + + | 2022-06-22 00:00 | METOPROLOL SUCCINATE | [facility] | + + + + | 2022-07-21 00:00 | METOPROLOL SUCCINATE | [facility] | + + + + | 2022-06-22 00:00 | PRAVASTATIN SODIUM | [facility] | + + + + | 2022-07-21 00:00 | PRAVASTATIN SODIUM | [facility] | + + + + | 2022-06-22 00:00 | LOSARTAN POTASSIUM | [facility] | + + + + | 2022-07-21 00:00 | LOSARTAN POTASSIUM | [facility] | + + + + | 2022-06-22 00:00 | | [facility] | | | CODEINE/BUTALBITAL/ASA/CAFF | | | | EIN | | + + + + | 2022-07-21 00:00 | | [facility] | | | CODEINE/BUTALBITAL/ASA/CAFF | | | | EIN | | + + + + Problems + + + + | date | description | facility | + + + + | 2014-08-22 00:00 | Low back pain | [facility] | + + + + | 2015-04-17 00:00 | Back pain | [facility] | + + + + | 2015-05-11 00:00 | Hematuria | [facility] | + + + + | 2018-07-31 00:00 | Chest pain | [facility] | + + + + | 2020-07-09 07:18:28 | Atrioventricular block, | [facility]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 | [facility] | + + + + | 2020-09-30 00:00 | Cellulitis of right lower | [facility] | | | extremity | | + + + + | 2021-02-02 00:00 | Gout of left foot | [facility] | + + + + | 2021-08-02 00:00 | Urinary tract infection | [facility] | + + + + | 2021-08-02 [...] + + + | 2021-08-02 04:46 | senior living (current) use of | [facility] | | | anticoagulants | [facility] | + + + + | 2021-08-02 04:46 | Other [facility] (current) | [facility] | | | drug therapy | [facility] | + + + + | 2021-08-02 04:46 | Personal history of | [facility] | | | nicotine dependence | [facility] | + + + + | 2022-07-21 00:00 | Food impaction of | [facility] | | | esophagus | | + [...] + + | 2022-07-21 20:02 | OTHER USP (CURRENT) | [facility] | | | DRUG [...]
[~2022-08-28 10:22] MED LIST changes: +AMLODIPINE BESYL5 MG PO
[2022-08-28 12:55] VITALS: BP 132/59
== END 2022-08-28 12:55 | disposition home or self-care (01) ==
LOC: ED 10:22
DX: K92.1 Melena (principal); I48.91 Unspecified atrial fibrillation; I10 Essential (primary) hypertension; I25.2 Old myocardial infarction; Z87.891 Personal history of nicotine dependence; Z79.02 Long term (current) use of antithrombotics/antiplatelets; Z79.899 Other long term (current) drug therapy
CPT/HCPCS: 36415; 80053; 85025; 86850; 86900; 86901; 99283

== ENCOUNTER 2023-03-06 19:34 | Emergency (ER) | payer MEDICARE, OTHER ==
[~2023-03-06] VITALS: Ht 182.9 cm; Wt 112.0 kg
[2023-03-06] MEDS ORDERED: ELIQUIS5 MG (19:43)
[2023-03-06] MEDS ORDERED: FAMOTIDINE 20 MG/ 2 ML VIAL IV ONE (19:45)
[2023-03-06] MEDS ORDERED: ALBUTEROL/IPRATROPIUM 3 ML NEB INH ONE (19:45)
[2023-03-06] MEDS ORDERED: methylPREDNISolone SOD SUCC 125 MG/2 ML VIAL IV ONE (19:45)
[2023-03-06 19:47] LABS: BASOPHILS 0.7 % (0-2); EOSINOPHILS 7.6 % (0-6); HEMATOCRIT 41.9 % (35.0-50.0); HEMOGLOBIN 14.6 g/dL (12.0-18.0); LYMPHOCYTES 30.5 % (24-44); MCH 33.8 (27-36); MCHC 34.8 g/dl (30-36); MCV 97.3 fl (81-99); MONOCYTES 11.4 % (0-12); NEUTROPHILS 49.8 % (39-80); PLATELET COUNT 153 K/uL (140-440); RBC 4.31 M/ul (4.3-5.7)
[2023-03-06 20:14] LABS: ALBUMIN 3.4 g/dL (3.4-5.0); ALBUMIN/GLOBULIN RATIO 1.03 (1.1-2.4); ANION GAP 11.6 (7-21); BILIRUBIN, TOTAL 0.3 ng/dL (0.2-1.0); BUN/CREATININE RATIO 11.2 (6.0-28.6); CALCIUM 8.7 mg/dL (8.5-10.1); CREATININE, SERUM 1.25 mg/dL (0.70-1.30); POTASSIUM 3.6 mmol/L (3.5-5.1); PROTEIN, TOTAL 6.7 g/dL (6.4-8.2)
[2023-03-06] MEDS ORDERED: FUROSEMIDE 40 MG/4 ML VIAL IV ONE (20:30)
[2023-03-06] MEDS ORDERED: POTASSIUM CHLORIDE 10 MEQ TABCR PO ONE (20:30)
[2023-03-06 20:36] LABS: INFLUENZA B NAA NEGATIVE (NEGATIVE); RESPIRATORY SYNCYTIAL VIR NAA NEGATIVE (NEGATIVE)
[2023-03-06 21:23] LABS: BILIRUBIN, URINE NEGATIVE (negative); BLOOD/HGB, URINE NEGATIVE (Negative); KETONE, URINE NEGATIVE (Negative); LEUK ESTERASE, URINE NEGATIVE (negative); NITRITE, URINE NEGATIVE (negative); PH, URINE 5.5 (5-7)
[2023-03-06 21:34] LABS: AMPHETAMINES, URINE NEGATIVE (NEGATIVE); BARBITURATES, URINE NEGATIVE (NEGATIVE); BENZODIAZEPINE, URINE NEGATIVE (NEGATIVE); BUPRENORPHINE, URINE NEGATIVE (NEGATIVE); CANNABINOID, URINE NEGATIVE (NEGATIVE); COCAINE, URINE NEGATIVE (NEGATIVE); ECSTASY, URINE NEGATIVE (NEGATIVE); FENTANYL, URINE NEGATIVE (NEGATIVE); METHADONE, URINE NEGATIVE (NEGATIVE); OPIATES, URINE NEGATIVE (NEGATIVE); OXYCODONE, URINE NEGATIVE (NEGATIVE); PHENCYCLIDINE, URINE NEGATIVE (NEGATIVE)
[2023-03-06 21:53] VITALS: BP 136/58
[2023-03-07] MEDS ORDERED: TRIPLE MAGNESI400 MG PO (23:01)
--- NOTE | 2023-03-11 12:16 | EKG ---
[facility] [address] [facility] [facility] [address] [place] [address] Signed Wide QRS rhythm Nonspecific intraventricular block Abnormal ECG When compared with ECG of 30-JUL-2018 22:02, Wide QRS rhythm has replaced Atrial fibrillation Vent. rate has decreased BY 48 BPM Confirmed by Jose D Weaver MD ([id number]) on 03/07/2023 10:13:58 AM Electronically Signed By: JOSE D WEAVER 03/11/23 1216 PATIENT NAME: ANA GATES Electrocardiogram DATE OF : 36 PHYSICIAN: JOSE D WEAVER REPORT #: [id number] REPORT IS CONFIDENTIAL AND NOT TO BE RELEASED WITHOUT AUTHORIZATION
== END 2023-03-06 21:53 | disposition home or self-care (01) ==
LOC: ED 19:34
PROVIDERS: Internal Medicine
DX: I11.0 Hypertensive heart disease with heart failure (principal); I50.9 Heart failure, unspecified; I25.10 Atherosclerotic heart disease of native coronary artery without angina pectoris; I25.2 Old myocardial infarction; Z87.891 Personal history of nicotine dependence; Z95.5 Presence of coronary angioplasty implant and graft; Z95.0 Presence of cardiac pacemaker; Z79.899 Other long term (current) drug therapy; Z79.01 Long term (current) use of anticoagulants; Z11.52 Encounter for screening for COVID-19
CPT/HCPCS: 36415; 71045; 80053; 80307; 81003; 83880; 84484; 85025; 87502; 93005; 93010; 94640; 96374; 96375; 99285-25; A9270; C9803; G0480; J1940; J2930; U0002

== ENCOUNTER 2023-04-09 04:38 | Emergency (ER) | payer MEDICARE, OTHER ==
[~2023-04-09] VITALS: Ht 182.9 cm; Wt 112.0 kg
[~2023-04-09 04:38] MED LIST changes: +ELIQUIS5 MG; +TRIPLE MAGNESI400 MG PO
[2023-04-09 04:48] LABS: BASOPHILS 0.7 % (0-2); EOSINOPHILS 4.6 % (0-6); HEMATOCRIT 40.2 % (35.0-50.0); HEMOGLOBIN 13.6 g/dL (12.0-18.0); LYMPHOCYTES 27.5 % (24-44); MCHC 33.8 g/dl (30-36); MCV 97.6 fl (81-99); MONOCYTES 9.8 % (0-12); NEUTROPHILS 57.4 % (39-80); PLATELET COUNT 154 K/uL (140-440); RBC 4.12 M/ul (4.3-5.7); RDW 13.8 (10.5-15.0)
[2023-04-09] MEDS ORDERED: NITROGLYCERIN 0.4 MG SUBL SL PRN (05:00)
[2023-04-09] MEDS ORDERED: ALBUTEROL SULFATE 0.5% 2.5 MG/0.5 ML VIAL INH ONE (05:00)
[2023-04-09] MEDS ORDERED: methylPREDNISolone SOD SUCC 125 MG/2 ML VIAL IV ONE (05:00)
[2023-04-09 05:10] LABS: ALBUMIN 2.9 g/dL (3.4-5.0); ALBUMIN/GLOBULIN RATIO 0.91 (1.1-2.4); ALKALINE PHOSPHATASE 98 U/L (46-116); ALT (SGPT) 27 U/L (14-59); ANION GAP 12.7 (7-21); AST (SGOT) 22 U/L (15-37); BILIRUBIN, TOTAL 0.5 ng/dL (0.2-1.0); BUN/CREATININE RATIO 9.82 (6.0-28.6); CARBON DIOXIDE 28 mmol/L (21-32); CHLORIDE 107 mmol/L (98-107); CREATININE, SERUM 1.12 mg/dL (0.70-1.30); DIGOXIN <0.2 ng/dL (0.9-2.0); GLOMERULAR FILTRATION RATE,EST 65 mL/min (>60); POTASSIUM 3.7 mmol/L (3.5-5.1); PROTEIN, TOTAL 6.1 g/dL (6.4-8.2); UREA NITROGEN 11 mg/dL (7-18)
[2023-04-09 05:31] LABS: INFLUENZA B NAA NEGATIVE (NEGATIVE); RESPIRATORY SYNCYTIAL VIR NAA NEGATIVE (NEGATIVE)
[2023-04-09] MEDS ORDERED: INHALER, ASSIST DEVICES 1 EACH SPACER MISC ONE (05:45)
[2023-04-09] MEDS ORDERED: methylPREDNISolone 4 MG HOME.PACK PO ONE (05:45)
[2023-04-09] MEDS ORDERED: ALBUTEROL SULFATE 8 GM HOME.PACK INH ONE (05:45)
[2023-04-09 06:00] VITALS: BP 143/86
--- NOTE | 2023-04-09 21:57 | EKG ---
[facility] [address] [facility] [place] [address] Signed Wide QRS rhythm Nonspecific intraventricular block Cannot rule out Anteroseptal infarct , age undetermined T wave abnormality, consider inferior ischemia Abnormal ECG When compared with ECG of 07-MAR-2023 20:11, No significant change was found Confirmed by Johnna Salazar MD () on 04/09/2023 9:57:28 PM Electronically Signed By: JOHNNA SALAZAR MD 04/09/23 2157 PATIENT NAME: ANA GATES Electrocardiogram DATE OF : 36 PHYSICIAN: JOHNNA SALAZAR MD REPORT #: [id number] REPORT IS CONFIDENTIAL AND NOT TO BE RELEASED WITHOUT AUTHORIZATION
== END 2023-04-09 06:02 | disposition home or self-care (01) ==
LOC: ED 04:38
PROVIDERS: Emergency Medicine
DX: J20.9 Acute bronchitis, unspecified (principal); I11.0 Hypertensive heart disease with heart failure; I50.9 Heart failure, unspecified; I25.2 Old myocardial infarction; I48.91 Unspecified atrial fibrillation; Z87.891 Personal history of nicotine dependence; Z79.899 Other long term (current) drug therapy; Z79.01 Long term (current) use of anticoagulants; Z79.02 Long term (current) use of antithrombotics/antiplatelets
CPT/HCPCS: 36415; 71045; 80053; 80162; 83880; 84484; 85025; 87502; 93005; 93010; 96374; 99285-25; J2930; U0002

== ENCOUNTER 2024-02-24 01:25 | Emergency (ER) | payer MEDICARE, OTHER ==
[~2024-02-24] VITALS: Ht 182.9 cm; Wt 114.8 kg
[2024-02-24] MEDS ORDERED: TAMSULOSIN HCL0.4 MG PO (01:36)
[2024-02-24 01:43] LABS: BASOPHILS 0.9 % (0-2); EOSINOPHILS 7.2 % (0-6); HEMATOCRIT 41.9 % (35.0-50.0); HEMOGLOBIN 14.2 g/dL (12.0-18.0); LYMPHOCYTES 27.6 % (24-44); MCH 33.2 (27-36); MCV 97.9 fl (81-99); MONOCYTES 9.7 % (0-12); NEUTROPHILS 54.6 % (39-80); PLATELET COUNT 159 K/uL (140-440); RBC 4.28 M/ul (4.3-5.7); RDW 14.5 (10.5-15.0)
[2024-02-24] MEDS ORDERED: ALBUTEROL/IPRATROPIUM 3 ML NEB INH PRN (01:45)
[2024-02-24] MEDS ORDERED: methylPREDNISolone SOD SUCC 125 MG/2 ML VIAL IV ONE (02:00)
[2024-02-24 02:05] LABS: ALBUMIN 3.3 g/dL (3.4-5.0); ANION GAP 9.9 (7-21); BILIRUBIN, TOTAL 0.4 ng/dL (0.2-1.0); BUN/CREATININE RATIO 10.6 (6.0-28.6); CALCIUM 9.1 mg/dL (8.5-10.1); CREATININE, SERUM 1.32 mg/dL (0.70-1.30); MAGNESIUM 1.5 mg/dL (1.8-2.4); POTASSIUM 3.9 mmol/L (3.5-5.1); PROTEIN, TOTAL 6.6 g/dL (6.4-8.2)
[2024-02-24 02:53] LABS: INFLUENZA B NAA NEGATIVE (NEGATIVE); RESPIRATORY SYNCYTIAL VIR NAA NEGATIVE (NEGATIVE)
[2024-02-24] MEDS ORDERED: AZITHROMYCIN 250 MG HOME.PACK PO ONE (03:15)
[2024-02-24] MEDS ORDERED: methylPREDNISolone 4 MG HOME.PACK PO ONE (03:15)
[2024-02-24] MEDS ORDERED: INHALER, ASSIST DEVICES 1 EACH SPACER MISC ONE (03:15)
[2024-02-24] MEDS ORDERED: ALBUTEROL SULFATE 8 GM HOME.PACK INH ONE (03:15)
[2024-02-24 03:30] VITALS: BP 136/52
--- NOTE | 2024-02-25 11:51 | EKG ---
[facility] [address] [facility] [place] [address] Signed Wide QRS rhythm Nonspecific intraventricular block Cannot rule out Anteroseptal infarct , age undetermined T wave abnormality, consider inferior ischemia Abnormal ECG When compared with ECG of 09-APR-2023 04:44, No significant change was found Confirmed by Yung Padron DO ([id number]) on 02/25/2024 11:51:32 AM Electronically Signed By: YUNG PADRON DO 02/25/24 1151 PATIENT NAME: ANA GATES HAJA Electrocardiogram DATE OF : 36 PHYSICIAN: YUNG PADRON DO REPORT #: [id number] REPORT IS CONFIDENTIAL AND NOT TO BE RELEASED WITHOUT AUTHORIZATION
== END 2024-02-24 03:30 | disposition home or self-care (01) ==
LOC: ED 01:25
PROVIDERS: Emergency Medicine
DX: J44.1 Chronic obstructive pulmonary disease with (acute) exacerbation (principal); I11.0 Hypertensive heart disease with heart failure; I50.9 Heart failure, unspecified; I25.2 Old myocardial infarction; I48.91 Unspecified atrial fibrillation; Z87.891 Personal history of nicotine dependence; Z79.01 Long term (current) use of anticoagulants; Z79.899 Other long term (current) drug therapy
CPT/HCPCS: 36415; 71045; 80053; 83735; 83880; 84484; 85025; 87502; 93005; 93010; 94640; 94664; 96374; 99285-25; J2919; U0002

== ENCOUNTER 2024-04-26 23:17 | Emergency (ER) | payer MEDICARE, OTHER ==
[~2024-04-26] VITALS: Ht 182.9 cm; Wt 110.0 kg
[2024-04-26] MEDS ORDERED: methylPREDNISolone SOD SUCC 125 MG/2 ML VIAL IV ONE (23:30)
[2024-04-26] MEDS ORDERED: ALBUTEROL/IPRATROPIUM 3 ML NEB INH ONE (23:30)
[2024-04-26 23:55] LABS: ALBUMIN 3.8 g/dL (3.4-5.0); ALBUMIN/GLOBULIN RATIO 1.12 (1.1-2.4); ANION GAP 13.2 (7-21); BILIRUBIN, TOTAL 0.5 mg/dL (0.2-1.0); BUN/CREATININE RATIO 11.94 (6.0-28.6); CALCIUM 9.9 mg/dL (8.5-10.1); CREATININE, SERUM 1.34 mg/dL (0.70-1.30); POTASSIUM 4.2 mmol/L (3.5-5.1); PROTEIN, TOTAL 7.2 g/dL (6.4-8.2)
[2024-04-27] MEDS ORDERED: FUROSEMIDE 40 MG/4 ML VIAL IV ONE (00:15)
[2024-04-27 00:43] LABS: BASOPHILS 0.9 % (0-2); EOSINOPHILS 9.4 % (0-6); HEMATOCRIT 44.7 % (35.0-50.0); HEMOGLOBIN 15.5 g/dL (12.0-18.0); MCH 33.9 (27-36); MCHC 34.6 g/dl (30-36); MONOCYTES 11.6 % (0-12); NEUTROPHILS 54.1 % (39-80); PLATELET COUNT 181 K/uL (140-440); RBC 4.57 M/ul (4.3-5.7); RDW 14.5 (10.5-15.0)
[2024-04-27 01:06] LABS: CORONAVIRUS COVID-19 AG NEGATIVE (NEGATIVE); INFLUENZA B AG NEGATIVE (NEGATIVE)
[2024-04-27 01:07] LABS: INFLUENZA A AG NEGATIVE (NEGATIVE)
[2024-04-27] MEDS ORDERED: PREDNISONE20 MG PO (01:12)
[2024-04-27] MEDS ORDERED: DOXYCYCLINE HY100 MG PO (01:12)
[2024-04-27] MEDS ORDERED: DOXYCYCLINE HYCLATE 100 MG CAP PO ONE (01:15)
[2024-04-27 01:16] LABS: BILIRUBIN, URINE NEGATIVE (negative); BLOOD/HGB, URINE NEGATIVE (Negative); KETONE, URINE NEGATIVE (Negative); LEUK ESTERASE, URINE NEGATIVE (negative); NITRITE, URINE NEGATIVE (negative)
[2024-04-27 01:34] VITALS: BP 131/62
--- NOTE | 2024-04-28 14:04 | EKG ---
[facility] [address] [facility] [place] [address] Signed Wide QRS rhythm with occasional premature ventricular complexes Nonspecific intraventricular block Cannot rule out Anteroseptal infarct , age undetermined Abnormal ECG When compared with ECG of 24-FEB-2024 01:49, premature ventricular complexes are now present Confirmed by Memo Byrnes MD ([id number]) on 04/28/2024 2:04:12 PM Electronically Signed By: MEMO BYRNES MD 04/28/24 1404 PATIENT NAME: ANA GATES Electrocardiogram DATE OF : 36 PHYSICIAN: MEMO BYRNES MD REPORT #: [id number] REPORT IS CONFIDENTIAL AND NOT TO BE RELEASED WITHOUT AUTHORIZATION
== END 2024-04-27 01:34 | disposition home or self-care (01) ==
LOC: ED 23:17
PROVIDERS: Internal Medicine
DX: J44.1 Chronic obstructive pulmonary disease with (acute) exacerbation (principal); I11.0 Hypertensive heart disease with heart failure; I50.9 Heart failure, unspecified; I25.2 Old myocardial infarction; I48.91 Unspecified atrial fibrillation; Z87.891 Personal history of nicotine dependence; Z79.01 Long term (current) use of anticoagulants; Z79.899 Other long term (current) drug therapy
CPT/HCPCS: 36415; 71045; 80053; 81003; 83880; 84484; 85025; 93005; 93010; 94640; 96374; 96375; 99285-25; J1940; J2919

== ENCOUNTER 2024-08-01 14:21 | Emergency (ER) | payer MEDICARE, OTHER ==
[~2024-08-01] VITALS: Ht 182.9 cm; Wt 111.0 kg
[~2024-08-01 14:21] MED LIST changes: +DOXYCYCLINE HY100 MG PO
[2024-08-01] MEDS ORDERED: VENTOLIN HFA18 GM (14:32)
[2024-08-01 14:41] LABS: BASOPHILS 0.9 % (0.2-1.2); EOSINOPHILS 7.6 % (0.8-7.0); HEMOGLOBIN 15.5 g/dL (13.7-17.5); LYMPHOCYTES 18.6 % (21.8-53.1); MCH 32.4 PG (25.7-32.2); MCHC 33.7 g/dL (32.3-36.5); MCV 96.2 fL (79.0-92.2); MONOCYTES 8.1 % (5.3-12.2); NEUTROPHILS 64.6 % (34.0-67.9); PLATELET COUNT 169 K/uL (163-337); RBC 4.78 M/uL (4.63-6.08)
[2024-08-01 15:00] LABS: ALBUMIN 3.7 g/dL (3.4-5.0); ALBUMIN/GLOBULIN RATIO 1.09 (1.1-2.4); ANION GAP 15.1 (7-21); BILIRUBIN, TOTAL 0.8 mg/dL (0.2-1.0); BUN/CREATININE RATIO 8.63 (6.0-28.6); CALCIUM 9.6 mg/dL (8.5-10.1); CREATININE, SERUM 1.39 mg/dL (0.70-1.30); MAGNESIUM 1.7 mg/dL (1.8-2.4); POTASSIUM 4.1 mmol/L (3.5-5.1); PROTEIN, TOTAL 7.1 g/dL (6.4-8.2)
[2024-08-01] MEDS ORDERED: SODIUM CHLORIDE 0.9% 1,000 ML IV PRN (15:30)
[2024-08-01] MEDS ORDERED: SODIUM CHLORIDE 0.9% 500 ML IV PRN (16:15)
[2024-08-01 18:30] VITALS: BP 174/63
--- NOTE | 2024-08-01 22:20 | EKG ---
[facility] [address] [facility] [place] [address] Signed Wide QRS rhythm Nonspecific intraventricular block Cannot rule out Anteroseptal infarct , age undetermined Abnormal ECG When compared with ECG of 26-APR-2024 23:25, premature ventricular complexes are no longer present Confirmed by Johnna Salazar MD () on 08/01/2024 10:19:52 PM Electronically Signed By: JOHNNA SALAZAR MD 08/01/24 2220 PATIENT NAME: ANA GATES Electrocardiogram DATE OF : 36 PHYSICIAN: JOHNNA SALAZAR MD REPORT #: [id number] REPORT IS CONFIDENTIAL AND NOT TO BE RELEASED WITHOUT AUTHORIZATION
== END 2024-08-01 18:30 | disposition home or self-care (01) ==
LOC: ED 14:21
PROVIDERS: Emergency Medicine
DX: R55 Syncope and collapse (principal); I11.0 Hypertensive heart disease with heart failure; I25.2 Old myocardial infarction; I48.91 Unspecified atrial fibrillation; I50.9 Heart failure, unspecified; J44.9 Chronic obstructive pulmonary disease, unspecified; Z87.891 Personal history of nicotine dependence
CPT/HCPCS: 36415; 80053; 83735; 84484; 85025; 93005; 93010; 96360; 99285-25; J7040

== ENCOUNTER 2024-08-02 11:01 | Emergency (ER) | payer MEDICARE, OTHER ==
[~2024-08-02] VITALS: Ht 182.9 cm; Wt 105.6 kg
[~2024-08-02 11:01] MED LIST changes: +VENTOLIN HFA18 GM
--- OUTSIDE RECORDS SUMMARY | 2024-08-02 11:06 | XMS ---
PreManage Notification: ANA GATES Security House Mother Events No recent Security Events currently on file CRITERIA MET - [facility] - 2 Visits in 30 Days CARE PROVIDERS JAZZY DUNN [facility] 02/03/2021-Current PHONE: [phone] [facility] Current PHONE: [phone] Anna has no Care Guidelines for this patient. Ree VISIT COUNT (12 MO.) [address] [place] [address] TOTAL 5 NOTE: Visits indicate total known visits. ED/UCC VISIT TRACKING (12 MO.) 08/02/2024 11:01 [facility] [place] TYPE: Emergency COMPLAINT: - WEAKNESS 08/01/2024 14:21 [facility] [place] TYPE: Emergency COMPLAINT: - WEAKNESS 04/26/2024 23:17 [facility] [place] TYPE: Emergency COMPLAINT: - SHORTNESS OF BREATH DIAGNOSES: - Chronic obstructive pulmonary disease with (acute) exacerbation - Heart failure, unspecified - Hypertensive heart disease with heart failure - vermin exterminator (current) use of anticoagulants - Old myocardial infarction - Other detention (current) drug therapy - Personal history of nicotine dependence - Shortness of breath - Unspecified atrial fibrillation 02/24/2024 01:25 [facility] [place] TYPE: Emergency COMPLAINT: - DIFFICULTY BREATHING DIAGNOSES: - Chronic obstructive pulmonary disease with (acute) exacerbation - Heart failure, unspecified - Hypertensive heart disease with heart failure - [facility] (current) use of anticoagulants - Old myocardial infarction - Other detention (current) drug therapy - Personal history of nicotine dependence - Shortness of breath - Unspecified atrial fibrillation 11/12/2023 08:04 [facility] [place] TYPE: Emergency COMPLAINT: - FALL DIAGNOSES: - Abrasion of left elbow, initial encounter - Essential (primary) hypertension - Fall on same level from slipping, tripping and stumbling without subsequent striking against object, initial encounter - Laceration without foreign body of left elbow, initial encounter - [facility] (current) use of anticoagulants - Old myocardial infarction - Other detention (current) drug therapy - Personal history of nicotine dependence - Presence of cardiac pacemaker - Presence of coronary angioplasty implant and graft - Unspecified atrial fibrillation INPATIENT VISIT TRACKING (12 MO.) No inpatient visits to display in this time frame [email or web address]
[2024-08-02 11:28] LABS: BASOPHILS 0.5 % (0.2-1.2); EOSINOPHILS 5.3 % (0.8-7.0); HEMATOCRIT 40.7 % (40.1-51.0); HEMOGLOBIN 13.9 g/dL (13.7-17.5); LYMPHOCYTES 22.2 % (21.8-53.1); MCH 32.6 PG (25.7-32.2); MCHC 34.2 g/dL (32.3-36.5); MCV 95.5 fL (79.0-92.2); MONOCYTES 9.8 % (5.3-12.2); NEUTROPHILS 61.7 % (34.0-67.9); RBC 4.26 M/uL (4.63-6.08)
[2024-08-02 11:40] LABS: ALBUMIN 3.3 g/dL (3.4-5.0); ALBUMIN/GLOBULIN RATIO 1.18 (1.1-2.4); BUN/CREATININE RATIO 7.75 (6.0-28.6); CALCIUM 8.8 mg/dL (8.5-10.1); CREATININE, SERUM 1.29 mg/dL (0.70-1.30); PROTEIN, TOTAL 6.1 g/dL (6.4-8.2)
[2024-08-02 11:54] LABS: PLATELET COUNT 47 K/uL (163-337)
[2024-08-02] MEDS ORDERED: ALBUTEROL/IPRATROPIUM 3 ML NEB INH ONE (12:00)
[2024-08-02 13:21] LABS: BASOPHILS 0.6 % (0.2-1.2); HEMATOCRIT 41.1 % (40.1-51.0); HEMOGLOBIN 13.7 g/dL (13.7-17.5); LYMPHOCYTES 17.6 % (21.8-53.1); MCH 32.7 PG (25.7-32.2); MCHC 33.3 g/dL (32.3-36.5); MCV 98.1 fL (79.0-92.2); MONOCYTES 11.2 % (5.3-12.2); NEUTROPHILS 64.2 % (34.0-67.9); PLATELET COUNT 145 K/uL (163-337); RBC 4.19 M/uL (4.63-6.08)
[2024-08-02 13:55] LABS: ABO A; RH POSITIVE
[2024-08-02 13:56] LABS: ANTIBODY SCREEN NEGATIVE
[2024-08-02 14:42] VITALS: BP 170/72
== END 2024-08-02 14:42 | disposition home or self-care (01) ==
LOC: ED 11:01
PROVIDERS: Emergency Medicine
DX: R53.1 Weakness (principal); I11.0 Hypertensive heart disease with heart failure; I25.2 Old myocardial infarction; I48.91 Unspecified atrial fibrillation; J44.9 Chronic obstructive pulmonary disease, unspecified; Z87.891 Personal history of nicotine dependence; Z79.899 Other long term (current) drug therapy
CPT/HCPCS: 36415; 80053; 85025; 85060; 86850; 86900; 86901; 94640; 97161; 99285

== ENCOUNTER 2024-12-03 07:35 | Emergency (ER) | payer MEDICARE ==
[~2024-12-03] VITALS: Ht 182.9 cm; Wt 111.5 kg
[2024-12-03 07:58] LABS: BASOPHILS 0.7 % (0.2-1.2); EOSINOPHILS 7.9 % (0.8-7.0); LYMPHOCYTES 20.3 % (21.8-53.1); MCH 32.8 PG (25.7-32.2); MCHC 33.8 g/dL (32.3-36.5); MCV 97.0 fL (79.0-92.2); MONOCYTES 10.8 % (5.3-12.2); NEUTROPHILS 59.9 % (34.0-67.9); RBC 4.02 M/uL (4.63-6.08)
[2024-12-03 08:11] LABS: ALT (SGPT) 23.0 U/L (14-59); AST (SGOT) 9.0 U/L (15-37); GLOMERULAR FILTRATION RATE,EST 61.0 mL/min (>60); PROTEIN, TOTAL 5.7 g/dL (6.4-8.2); UREA NITROGEN 13.0 mg/dL (7-18)
[2024-12-03] MEDS ORDERED: SPIRIVA RESPIMAT4 GM INH (08:19)
[2024-12-03] MEDS ORDERED: ASPIRIN 81 MG CHEW PO ONE (09:45)
[2024-12-03 10:09] VITALS: BP 148/76
== END 2024-12-03 10:09 | disposition home or self-care (01) ==
LOC: ED 07:35
PROVIDERS: Emergency Medicine
DX: R53.1 Weakness (principal); I25.10 Atherosclerotic heart disease of native coronary artery without angina pectoris; I48.91 Unspecified atrial fibrillation; I11.0 Hypertensive heart disease with heart failure; I50.9 Heart failure, unspecified; J44.9 Chronic obstructive pulmonary disease, unspecified; I25.2 Old myocardial infarction; Z87.891 Personal history of nicotine dependence; Z95.5 Presence of coronary angioplasty implant and graft; Z95.0 Presence of cardiac pacemaker; Z79.01 Long term (current) use of anticoagulants; Z79.899 Other long term (current) drug therapy
CPT/HCPCS: 36415; 70450; 70496; 70498; 80053; 85025; 99284-25; A9270; Q9967

== ENCOUNTER 2025-01-21 10:32 | Emergency (ER) | payer MEDICARE, OTHER ==
[~2025-01-21] VITALS: Ht 182.9 cm; Wt 110.9 kg
[~2025-01-21 10:32] MED LIST changes: +SPIRIVA RESPIMAT4 GM INH
[2025-01-21 11:00] LABS: BASOPHILS 0.6 % (0.2-1.2); EOSINOPHILS 4.2 % (0.8-7.0); LYMPHOCYTES 10.0 % (21.8-53.1); MCH 33.0 PG (25.7-32.2); MCHC 33.3 g/dL (32.3-36.5); MCV 99.3 fL (79.0-92.2); MONOCYTES 9.4 % (5.3-12.2); NEUTROPHILS 75.7 % (34.0-67.9); RBC 4.24 M/uL (4.63-6.08)
[2025-01-21 11:20] LABS: ALT (SGPT) 20.0 U/L (14-59); AST (SGOT) 24.0 U/L (15-37); GLOMERULAR FILTRATION RATE,EST 60.0 mL/min (>60); PROTEIN, TOTAL 6.8 g/dL (6.4-8.2); UREA NITROGEN 13.0 mg/dL (7-18)
[2025-01-21 11:42] LABS: CORONAVIRUS COVID-19 AG NEGATIVE (NEGATIVE)
[2025-01-21] MEDS ORDERED: LASIX20 MG PO (12:38)
[2025-01-21] MEDS ORDERED: FUROSEMIDE 40 MG TAB PO ONE (12:45)
[2025-01-21 13:03] VITALS: BP 160/69
== END 2025-01-21 13:05 | disposition home or self-care (01) ==
LOC: ED 10:32
PROVIDERS: Emergency Medicine
DX: I11.0 Hypertensive heart disease with heart failure (principal); I50.9 Heart failure, unspecified; J44.9 Chronic obstructive pulmonary disease, unspecified; Z79.899 Other long term (current) drug therapy; Z87.891 Personal history of nicotine dependence
CPT/HCPCS: 36415; 71045; 80053; 83880; 84484; 85025; 87502; 87651; 99285-25; U0002